=== PATIENT | female | born 1975 ===

== ENCOUNTER 2024-10-01 06:40 | Outpatient (REF) | payer OTHER, SELFPAY ==
--- NOTE | ~2024-10-01 | US_ITS ---
EXAMINATION: US PELVIS CLINICAL INFORMATION: Left pelvic pain COMPARISON: None available. TECHNIQUE: Ultrasound of the pelvis is performed using both transabdominal and transvaginal transducers along with Doppler. Transvaginal imaging is performed due to inadequate visualization transabdominally. FINDINGS: Uterus: The uterus measures 9.6 x 4.5 x 5.4 cm. The double wall endometrial thickness is 15 mm. The uterus is smooth in contour and has normal myometrial echogenicity. No visible fibroid. Adnexa: Both ovaries are visualized. There is normal color flow to the adnexa. There is no ovarian torsion. There is no pelvic ascites or fluid collection. Right ovary measures 3.4 x 2.4 x 1.7 cm. There is a cyst measuring 18 x 26 mm with a 2 mm thick septation versus 2 small adjacent follicles not requiring follow-up. Left ovary measures 2.3 x 1.6 x 2.4 cm. US/US pelvic and transvaginal IMPRESSION: Borderline endometrial thickening. Thickening likely related to the secretory phase of the menstrual cycle. Electronically signed by: Yang Rahman MD 10/01/2024 01:04 PM EDT
--- OUTSIDE RECORDS SUMMARY | 2024-10-01 06:43 | XMS_ITS | Data Portability ---
Author Organization [facility], , [facility] Address [address] [place] [address] Assessment Encounter Date Assessment Date Assessment LastModified by Organization Details LastModified Time 12/24/2014 12/24/2014 After a discussion of treatment options, which included consideration of best practices and patient preferences, the following treatment plan and objectives were adopted: [email or web address] Not available 12/24/2014 10:01:39 Plan of Treatment Reminders Order Date Submit Date Provider Last Modified By Organization Details Last Modified Time Details Appointments None recorded. Lab CBC 2015 016 [facility], [address] [place] [address], [id number], 6 17:32:04 BMP, serum or plasma 2015 016 [facility], [address] [place] [address], [id number], 6 11:43:15 TSH, serum or plasma 2015 016 [facility], [address] [place] [address], [address], 6 10:40:43 lipid panel, serum 2014 015 [facility], [address] [place] [address], [address], 5 14:26:33 glucose, QN [mass/volum e], serum or plasma 2014 015 [facility], [address] [place] [address], [id number], 5 14:26:34 lipid panel 2013 014 [facility], [address] [place] [address], [id number], 4 09:27:41 glucose 2013 014 [facility], [address] [place] [address], [address], 4 09:27:42 Referral None recorded. Procedures None recorded. Surgeries None recorded. Imaging electrocard iogram 2014 015 [email or web address] [facility], [address] [place] [address], [id number], 5 12:46:28 Medication Orders None recorded. Patient TargetsNo targets recorded. Patient Instructions Encounter Date Encounter Id Patient Instructions Last Modified By Organization Details Last Modified Time 12/24/2014 [id number] Well Visit, Ages 18 to 65: Care Instructions Not available 12/24/2014 10:20:55 Reason for Referral None Reported. Results Created Date Observation Date Name Description Value Unit Range Abnormal Flag Note LastModifiedBy Organization Detail LastModifiedTime 02/18/20 15 02/17/2015 tete bob am Result nsr Not Available [address], [address], 02/17/2015 12:24:50 09/11/19 14 09/11/2013 lipid panel cholesterol 154 mg/dL <200 mg/dL woodrow able 200-2 39 mg/dL borde rline high >240 mg/dL high Not Available [address], [address], 09/11/2013 09:27:41 09/11/19 14 09/11/2013 lipid panel triglyceride s 71 mg/dL <150 mg/dL yin l 150-1 99 mg/dL borde rline high 200-4 99 mg/dL high >500 mg/dL very high Not Available [address], [address], 09/11/2013 09:27:41 09/11/19 14 09/11/2013 lipid panel direct HDL 56 mg/dL Not Available [address], [address], 09/11/2013 09:27:41 09/11/19 14 09/11/2013 gluco se glucose 81 mg/dL 70-100 Not Available [address], [address], 09/11/2013 09:27:42 09/11/19 14 09/11/2013 LDL calcu lated LDL - calculated 83.8 risk categ ory LDL goal _ CHD or CHD risk equiv alent s <100 mg/dL (10-y ear risk >20%) 2+ risk facto rs <130 mg/dL (10-y ear risk <= 20%) 0-1 risk facto r <160 mg/[facility] e with 0-1 risk facto r have a 10 year risk <10%, thus 10 year risk asses ment in peopl e with 0-1 risk facto r IS not adrián jason. Not Available [address], [address], 09/11/2013 09:27:43 12/25/19 15 12/24/2014 lipid panel , serum cholesterol 148 mg/dL <200 mg/dl Woodrow able 200-2 39 mg/dl Borde rline High >240 mg/dl High Not Available [address], [address], 12/24/2014 14:26:33 12/25/19 15 12/24/2014 lipid panel , serum triglyceride s 81 mg/dL <150 mg/dL Yin l 150-1 99 mg/dL Borde rline High 200-4 99 mg/dL High >500 mg/dL Very High Not Available [address], [address], 12/24/2014 14:26:33 12/25/19 15 12/24/2014 lipid panel , serum direct HDL 50 mg/dL Not Available [address], [address], 12/24/2014 14:26:33 12/25/19 15 12/24/2014 gluco se, QN [mass /volu me], serum or plasm a glucose 84 mg/dL 70-100 Not Available [address], [address], 12/24/2014 14:26:34 12/25/19 15 12/24/2014 LDL, calcu lated , serum (OBS) LDL - calculated 81.8 RISK CATEG ORY LDL GOAL _ CHD or CHD Risk Equiv alent s <100 mg/dl (10-y ear risk >20%) 2+ Risk Facto rs <130 mg/dl (10-y ear risk <= 20%) 0-1 Risk Facto r <160 mg/dl [facility] all peopl e with 0-1 risk facto r have a 10 year risk <10%, thus 10 year risk asses ment in peopl e with 0-1 risk facto r is not neces jason. Not Available [address], [address], 12/24/2014 14:26:35 05/22/19 16 05/22/2015 CBC WBC 7.6 K/ L 4.0-10 .0 Not Available [address], [address], 05/22/2015 17:32:04 05/22/19 16 05/22/2015 CBC RBC 4.08 M/ L 3.93-5 .22 Not Available [address], [address], 05/22/2015 17:32:04 05/22/19 16 05/22/2015 CBC HGB 12.3 g/dL 11.2-1 5.7 Not Available [address], [address], 05/22/2015 17:32:04 05/22/19 16 05/22/2015 CBC HCT 36.9 % 34.1-4 4.9 Not Available [address], [address], 05/22/2015 17:32:04 05/22/19 16 05/22/2015 CBC MCV 90.4 L 79.4-9 4.8 Not Available [address], [address], 05/22/2015 17:32:04 05/22/19 16 05/22/2015 CBC MCH 30.1 pg 25.6-3 2.2 Not Available [address], [address], 05/22/2015 17:32:04 05/22/19 16 05/22/2015 CBC MCHC 33.3 g/dL 32.2-3 5.5 Not Available [address], [address], 05/22/2015 17:32:04 05/22/19 16 05/22/2015 CBC plt 248.0 K/ L 182.0- 369.0 Not Available [address], [address], 05/22/2015 17:32:04 05/22/19 16 05/22/2015 CBC MPV 11.6 9.4-12 .3 Not Available [address], [address], 05/22/2015 17:32:05/22/19 16 05/22/2015 CBC neut% 49.2 % 34.0-7 1.1 Not Available [address], [address], 05/22/2015 17:32:04 05/22/19 16 05/22/2015 CBC neut# 3.8 1.6-6. 1 Not Available [address], [address], 05/22/2015 17:32:04 05/22/19 16 05/22/2015 CBC lymph % 38.2 % 19.3-5 1.7 Not Available [address], [address], 05/22/2015 17:32:04 05/22/19 16 05/22/2015 CBC lymph # 2.9 K/ L 1.2-3. 7 Not Available [address], [address], 05/22/2015 17:32:04 05/22/19 16 05/22/2015 CBC mono% 10.3 % 4.7-12 .5 Not Available [address], [address], 05/22/2015 17:32:04 05/22/19 16 05/22/2015 CBC mono# 0.8 0.2-0. 4 high Not Available [address], [address], 05/22/2015 17:32:04 05/22/19 16 05/22/2015 CBC eo% 1.6 % 0.7-5. 8 Not Available [address], [address], 05/22/2015 17:32:04 05/22/19 16 05/22/2015 CBC eo# 0.1 0.0-0. 4 Not Available [address], [address], 05/22/2015 17:32:04 05/22/19 16 05/22/2015 CBC baso% 0.7 % 0.1-1. 2 Not Available [address], [address], 05/22/2015 17:32:04 05/22/19 16 05/22/2015 CBC baso# 0.1 0.0-0. 1 high Not Available [address], [address], 05/22/2015 17:32:04 05/22/19 16 05/22/2015 CBC RDW-CV 12.5 % 11.7-1 4.4 Not Available [address], [address], 05/22/2015 17:32:04 05/22/19 16 05/25/2015 TSH, serum or plasm a TSH 1.43 uIU/m L 0.50-6 .00 The Ameri can Colle ge of Endoc rinol ogy and Ameri can Thyro id Assoc iatio n recom mend goal TSH value s betwe en 0.4-4 .0 mIU/m L. Not Available [address], [address], 05/25/2015 10:40:43 05/22/19 16 05/25/2015 BMP, serum or plasm a glucose 81 mg/dL 70-100 Not Available [address], [address], 05/25/2015 11:43:14 05/22/19 16 05/25/2015 BMP, serum or plasm a BUN 7 mg/dL 7-18 Not Available [address], [address], 05/25/2015 11:43:14 05/22/19 16 05/25/2015 BMP, serum or plasm a creatinine 0.7 mg/dL 0.8-1. 3 low Not Available [address], [address], 05/25/2015 11:43:14 05/22/19 16 05/25/2015 BMP, serum or plasm a B/C 10.0 ratio Not Available [address], [address], 05/25/2015 11:43:14 05/22/19 16 05/25/2015 BMP, serum or plasm a GFR -non 103.3 mL/mi n Recom mary d GFR by the Natio nal Kidne y Found ation >60 mL/mi n/1.7 3m2 - Yin l <60 mL/mi n/1.7 3m2 - Chron ic Kidne y Disea se <15 mL/mi n/1.7 3m2 - Kidne y Failu re Not Available [address], [address], 05/25/2015 11:43:14 05/22/19 16 05/25/2015 BMP, serum or plasm a GFR - if 118.8 mL/mi n For Afric an Ameri can patie nts: Resul ts Multi plied by 1.21 Not Available [address], [address], 05/25/2015 11:43:14 05/22/19 16 05/25/2015 BMP, serum or plasm a sodium 142 mmol/ L 136-14 5 Not Available [address], [address], 05/25/2015 11:43:14 05/22/19 16 05/25/2015 BMP, serum or plasm a potassium 4.1 mmol/ L 3.5-5. 1 Not Available [address], [address], 05/25/2015 11:43:14 05/22/19 16 05/25/2015 BMP, serum or plasm a chloride 105 mmol/ L 96-107 Not Available [address], [address], 05/25/2015 11:43:14 05/22/19 16 05/25/2015 BMP, serum or plasm a anion gap 10.5 5.0-15 .0 Not Available [address], [address], 05/25/2015 11:43:14 05/22/19 16 05/25/2015 BMP, serum or plasm a CO2 27 mmol/ L 21-32 Not Available [address], [address], 05/25/2015 11:43:14 05/22/19 16 05/25/2015 BMP, serum or plasm a calcium 9.1 mg/dL 8.5-10 .3 Not Available [address], [address], 05/25/2015 11:43:14 02/18/20 15 elect michael russgr am No observ ation record ed. pkeough Not Available 2015 11:38:13 Result Notes None recorded. Problems No Known Problems Procedures Surgical History Date Name Laterality Status Provider Name and Address Organization Details Recorded Time 6 Ana Paula - EGD completed Andre Goss MD [address] [place] [address], [id number], [facility] 10/01/2015 12:58:22 Imaging Results None recorded. Procedure Notes None recorded. Medical Equipment None Reported. Allergies No known drug allergies Medications Name Sig Start Date Stop Date Status Note LastModified by Organization Details LastModified Time hydrocodone /acetaminop hen 5-325 mgtabs active Not Available Not Available Not Available hydrocodone 5 mg-acetamin ophen 325 mg tablet TAKE 1 TABLET BY MOUTH EVERY 4 TO 6 HOURS IF PAIN - MAY CAUSE DROWSINES S active Not Available Not Available No t Available doxycycline monohydrate 100 mg tablet Take 1 tablet twice a day by oral route for 21 days. 08/20 completed Not Available Not Available Not Available triamcinolo ne acetonide 0.025 % topical cream active Not Available Not Available Not Available omeprazole 20 mg tablet,dian yed release Take 1 tablet twice a day by oral route for 14 days. 03/21 completed Not Available Not Available Not Available GaviLyte-G 236 gram-22.74 gram-6.74 gram-5.86 gram oral solution active Not Available Not Available Not Available Vitals Date Recorded Body height Body weight Body mass index (BMI) Oxygen saturation Oxygen saturation in Arterial blood by Pulse oximetry Systolic And Diastolic Provider Name and Address Organization Details Last Updated DateTime 6 152.4 cm 15800.7 94066 g 25.4 kg/m2 99 % 99 % 96/66 mm[Hg] Sarahi Mar MA [facility] 6 11:35:37 Date Recorded Body weight Heart rate Body mass index (BMI) Body height Systolic And Diastolic Provider Name and Address Organization Details Last Updated DateTime 09/10/2013 88804.86 151 g 72 /min 24 kg/m2 152.4 cm 110/62 mm[Hg] Sarahi Mar MA [facility] 4 14:01:01 Date Recorded Body height Body mass index (BMI) Body weight Systolic And Diastolic Provider Name and Address Organization Details Last Updated DateTime 12/24/2014 152.4 cm 24 kg/m2 03959.143 036 g 104/68 mm[Hg] Lexi Stanley [facility] 12/24/2014 09:54:00 Date Recorded Body height Body mass index (BMI) Body weight Heart rate Oxygen saturation Oxygen saturation in Arterial blood by Pulse oximetry Systolic And Diastolic Provider Name and Address Organization Details Last Updated DateTime 5 152.4 cm 25.2 kg/m2 74811.6 13419 g 66 /min 98 % 98 % 102/70 mm[Hg] Paulette Saldivar LPN [facility] 5 12:12:40 Social History Question Answer Notes LastModified by Organizat ion Details LastModified Time Tobacco Smoking Status Never Smoker Sarahi [place] [facility] 06/13/2011 14:06:12 Do You Wear A Helmet When Biking? No Information not available 12/24/2014 What Is Your Level Of Caffeine Consumption? None Information not available 12/24/2014 How Much Tobacco Do You Chew? None Information not available 06/13/2011 What Type Of Diet Are You Following? REGULAR Information not available 06/13/2011 Which Illicit Or Recreational Drugs Have You Used? None Information not available 06/13/2011 How Many Days In The Past Year Have You Had A Heavy Drinking Consumption (4+ Female, 5+ Male)? 0 Information no t available 06/25/2012 Are There Any Guns Present In Your Home? No Information not available 12/24/2014 Live Alone Or With Others? With Others Information not available 06/13/2011 Patient Has Health Care Proxy Signed And In Chart No 06/25/12, 05/22/15 [email or web address] Information not available 06/21/2012 Marital Status From [facility]; Came To 02/2011. Information not available 06/13/2011 Mosquito Repellent Used Routinely No Information not available 12/24/2014 How Many Children Do You Have? 4 19yo, 17yo, 14 Yo, 12yo Information not available 06/13/2011 Seat Belts Used Routinely Yes Information not available 12/24/2014 Are You Sexually Active? Yes Information not available 06/13/2011 Smoke Alarm In Home Yes Information not available 12/24/2014 General Stress Level Medium Information not available 12/24/2014 Do You Use Sunscreen Routinely? No Information not available 12/24/2014 Sex: Unknown Functional Status Question Answer Note LastModified by Organizat ion Details LastModified Time What is your level of alcohol consumption? 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 Family History Relationship Description Onset Age of this Age Resolved Age Notes LastModified by Organization Details LastModified Time Father Malignant neoplastic disease 55 throat (previ ously record ed as Cancer ) [email or web address] Not available 05/22/2015 11:38:57 Notes:No other cancerns, DM, CAD in family Medical History No medical history recorded. Gynecological History Statement/Question Response Menses Monthly Y History of Abnormal Pap N Obstetrics History GPAL:G 0 P 0 0 0 0 Immunizations Vaccine Type Date Status Note Provider Nam e and Address Organization Details Recorded Time Influenza, split virus, trivalent, preservative 2 completed Not Available [facility] 04/06/2019 02:25:37 Past Encounters Encounter ID Performer Location Encounter Start Date Encounter Closed Date Diagnosis/Indication Diagnosis SNOMED-CT Code Diagnosis ICD10 Code Diagnosis Note [id number] Alecia VOSS, [facility] [place], OFFICE [address] [place] [address] 06/13/2011 13:55:31 06/13/2011 14:56:45 [id number] Alecia White D.O. [facility], [address]ICE [address] [place] [address] 06/27/2011 15:58:58 06/27/2011 16:24:22 [id number] [facility] [place] FLU CLINIC [facility], [address]ICE [address] [place] [address] 12/08/2011 14:40:16 12/09/2011 11:57:39 [id number] Paula Carballo NP , [facility] [place], [address]ICE [address] [place] [address] 06/25/2012 15:14:43 06/25/2012 15:49:14 [id number] Modesto Manjarrez MD [facility], OFFICE [address] [place] [address] [place] [address] 07/30/2012 15:22:13 07/31/2012 10:17:38 [id number] Modesto Manjarrez MD [facility], OFFICE [address] [place] [address] [place] [id number] 08/03/2012 16:31:25 08/03/2012 17:03:43 [id number] Alecia White D.O. [facility], [address]ICE [address] [place] [address] 03/07/2013 15:46:17 03/07/2013 16:53:06 Gastritis 1491127 hard to discern pain patterns with language barrier. no n/v/d or constipati on. no weigth loss or fevers. suspect gastritis. ok for trial of PPI bid for 2 weeks and if no improvemen t consider labs/u/s or GI eval. normal exam, reassuranc e given. [id number] Alecia White D.O. [facility], [address]ICE [address] [place] [address] 09/10/2013 13:52:54 09/10/2013 14:32:30 Adult health examination [id number] Encouarged more regular exercise, low fat diet. Labs 05/29 wnl. HDL 42. Advised more regular exercise. SurePath pap today .Declines tdap; states had at [facility] Screening for malignant neoplasm of cervix [id number] Paula Carballo NP , [facility] [place], [address] [place] [id number] 12/24/2014 09:33:14 12/24/2014 10:08:46 Adult health examination 655558725 Z00.00 see Risk Assessment and Lifestyle Change Counseling section above Encouarged more regular exercise, low fat diet. Labs 08/31 wnl Sure[facility] pap 08/31 with 3 yr repeat .Declines tdap; states had at [facility] Counseling [id number] Z71 .9 [id number] Alecia White D.O. , [facility] [place], [address] [place] [address] 02/17/2015 10:50:18 02/17/2015 12:46:28 Palpitations 52388800 R00.2 one 30 second episode of fast heart rate/palpi tations while resting 3 days ago- no recurrence some reproducib le chest pain, ?pulled muscle reassuranc e given [id number] Alecia White D.O. , [facility] [place], [address] [address] [place] [address] 05/22/2015 11:25:00 05/22/2015 12:04:03 Palpitations 69999108 R00.2 reoccurrin g palpitatio ns ekg neg 03/03 will check labs below advised reduce caffeine down to 1 tea per day, reduce stress RTO 1-2 weeks for f/u- may consider Holter. [id number] Andre Goss MD [facility], [address] [place] [address] 10/01/2015 11:38:49 11/02/2015 12:30:28 [id number] Andre Goss MD Endoscopy , [address] [place] [address] 07/21/2023 07:28:31 07/21/2023 10:49:56 Health Concerns Section Related Observation LastModified by Organization Detai ls LastModified Time None Recorded Concern Status LastModified by Organization Details LastModified Time None Recorded Advance Directives Directive None Recorded Payers Insurance Date Sequence Insurance Name Policy Number Policy Calloway Covered Member ID Calloway Member ID Guarantor Name 07/25/2023 1 [facility] [id number] 1 Smith Antony [id number] Mariebl Antony Notes Date Note Type Note Provider Name and Address Organization Details Recorded Time 09/10/2013 text/html 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 Paula Carballo NP [address] [place], [address], [facility] 12/24/2014 10:06:27 02/17/2015 text/html Angina/Chest painReported bypatient.Location: chest; does not radiate Quality:pressure Severity:moderate; pain level 5/10 Duration:lasts minutes; started 3 days ago Onset/Timing:abrupt onset without warning Context:at rest Associated Symptoms:chest discomfort;shortnes s of breath;palpitations Notes:started with 30 seconds of fast heart rate 3 days ago worried about heart attack- no family h/o, no risk factors denies any new meds, no decongestants mild chest pain (reproducible) and pain with taking deep breath denies N/V/diaporesis no recurrence of palpitation exercises/works/not interfering with her work Alecia White D.O. [address] [place], [address], [facility] 02/17/2015 12:50:38 05/22/2015 text/html Maribel is here to discuss ongoing palpitations. fast heart rate. sxs occuring multiple x week- usually over night. lasted a while- a few hours. No cp, sob. dizziness. No exercise intolerance. Drinks 2-3 cups of tea, occasional coffee. ETOH Monday, monday 2 glassses no stress. worries about family Previous visit 02/17/15 with TF. Nml EKG Paula Carballo NP [address] [place], [address], [facility] 05/22/2015 12:01:06 OBGyn Episode No OBEpisode recorded.
== END 2024-10-01 06:41 | disposition home or self-care (01) ==
LOC: HO.UMASIMG 06:40
PROVIDERS: Visit Provider Family Medicine
DX: R10.9 Unspecified abdominal pain (principal)
CPT/HCPCS: 76830; 76856

== ENCOUNTER → 2024-10-01 09:00 | Outpatient (BNV) | payer OTHER, SELFPAY | PROVIDERS: Visit Provider Radiology Diagnostic Radiology | DX: R10.2 Pelvic and perineal pain (principal) | CPT/HCPCS: 76830; 76856 ==